=== PATIENT | female | born 1975 ===

== ENCOUNTER 2025-02-07 05:41 | Emergency (ER) | payer BC, OTHER ==
[2025-02-07] MEDS ORDERED: Sodium Chloride 0.9% 10 ML Syringe FLUSH PRN (06:13)
[2025-02-07 06:22] LABS: BASOPHILS ABSOLUTE AUTO 0.1 K/mm3 (0.0-0.2); BASOPHILS PERCENT AUTO 1.3 % (0.0-1.0); EOSINOPHILS ABSOLUTE AUTO 0.4 K/mm3 (0.0-0.4); EOSINOPHILS PERCENT AUTO 4.8 % (0.0-6.0); IMMATURE GRAN ABSOLUTE AUTO 0.04 K/mm3 (0.00-0.05); IMMATURE GRAN PERCENT AUTO 0.5 % (0.0-0.4); LYMPHOCYTES ABSOLUTE AUTO 2.5 K/mm3 (1.0-4.8); LYMPHOCYTES PERCENT AUTO 33.3 % (24.0-44.0); MEAN PLATELET VOLUME 10.9 fl (9.4-12.3); MONOCYTES ABSOLUTE AUTO 0.6 K/mm3 (0.0-0.8); MONOCYTES PERCENT AUTO 8.3 % (0.0-8.0); NEUTROPHILS ABSOLUTE AUTO 3.9 K/mm3 (1.8-7.7); NEUTROPHILS PERCENT AUTO 51.8 % (41.0-71.0); NRBC ABSOLUTE 0.00 (0.00-0.02); NRBC PERCENT 0.0 % (0.0-0.2); PLATELET COUNT,PLT 266 K/mm3 (150-400); RED BLOOD CELL COUNT 4.49 M/mm3 (4.10-5.30); WHITE BLOOD CELL COUNT,WBC 7.47 K/mm3 (3.9-11.3)
[2025-02-07 06:32] LABS: APPEARANCE,URINE CLEAR (Clear); GLUCOSE,URINE 2+ (Negative); OCCULT BLOOD,URINE TRACE-INTACT (Negative)
[2025-02-07 06:34] LABS: A/G RATIO 1.0 (1-2); ALANINE AMINOTRANSFERASE,ALT 40.0 U/L (14-59); ASPARTATE AMNIOTRANSFERASE,AST 28.0 U/L (15-37); BILIRUBIN TOTAL 0.3 mg/dL (0.2-1.0); BLOOD UREA NITROGEN,BUN 15.0 mg/dL (7-18); CARBON DIOXIDE,CO2 24.0 mEq/L (21-32); CHLORIDE,CL 101.0 mEq/L (98-107); CREATININE 1.1 mg/dL (0.55-1.02); EST CRCL DRUG DOSING (CG) 50.05 mL/min; ESTIMATED GFR 61.0 mL/min (>60); POTASSIUM,K 4.2 mEq/L (3.5-5.1); PROTEIN TOTAL,TP 7.4 g/dl (6.4-8.2); SODIUM,NA 139.0 mEq/L (136-145)
[2025-02-07 06:37] LABS: GLUCOSE RANDOM 548.0 mg/dL (70-99)
[2025-02-07 06:50] LABS: SQUAMOUS EPITHELIAL CELLS,UR 0-5 /hpf (0-5)
[2025-02-07 07:06] LABS: BASE EXCESS VENOUS 3.9 (-4.0-2.0); BICARBONATE,VENOUS 29.7 meq/L (22-26); O2 SATURATION VENOUS 28.1; PCO2 VENOUS 48.0 mmHg (41-51); PH,VENOUS 7.40 (7.30-7.40); PO2 VENOUS 27.0 mmHG (40-80)
[2025-02-07 07:14] LABS: OSMOLALITY,SERUM 334.0 mosm/kg (280-300)
[2025-02-07] MEDS: Insulin Regular, Human 100 Units/ML 10 ML Vial SUBCUT ONE (07:54)
[2025-02-07] MEDS: Insulin Regular, Human 100 Units/ML 10 ML Vial IV ONE (07:56)
[2025-02-07 09:43] VITALS: BP 161/76; PULSE 86
== END 2025-02-07 09:42 | disposition home or self-care (01) ==
LOC: JD.ED 05:41
DX: E10.65 Type 1 diabetes mellitus with hyperglycemia (principal); K21.9 Gastro-esophageal reflux disease without esophagitis; I10 Essential (primary) hypertension; Z79.4 Long term (current) use of insulin; Z90.49 Acquired absence of other specified parts of digestive tract; Z87.891 Personal history of nicotine dependence
CPT/HCPCS: 36415; 80053; 81001; 82803; 82947; 83735; 83930; 84703; 85025; 96360; 96361; 99284; J1815; J7030; 99283